=== PATIENT | male | born 1980 | race Caucasian/White ===

== ENCOUNTER → 2024-05-05 | Outpatient (CLI) | payer OTHER ==
[2024-05-05 15:15] VITALS: BP 99/64; PULSE 98; RESP 16; TEMP 99; BMI 83.2
--- NOTE | 2024-05-05 16:09 | P.HPBAR ---
Bariatric H&P - History & Physicial H&P Date: 05/05/24 History & Physicial: Visit/CC: new Patient initial contact: Initial weight: 270.795 kg Initial weight in pounds: 597.00 Height: 5 ft 11 in Initial BMI: 83.2 Last weight: Current weight: 270.795 kg Current weight in pounds: 597.00 Current BMI: 83.2 [place] body weight (based on NIH guidelines): 78.18 kg Excess body weight loss: 0.0% The patient is a 43 year-old M who presents for Bariatric Assessment. Looking for sleeve or bypass. Maybe bypass. He is on oxygen for 3 years. Has not seen a lung specialist. Heart doctor at [facility]. Could not travel downtown. Hospital IV diuretics at [facility]. Moved to [place]. PCP is Tray. Heart failure specialist. [facility]. Seminar. Wanted to lose 70 pounds. Had to be under 500 pounds. He is 600 pounds. Past Medical History Past Medical History: Asthma, Heart Failure, Diabetes Mellitus, Hypertension, Skin Disorder, Sleep Apnea/CPAP/BIPAP Additional Past Medical History / Comment(s): 3LNC O2 all the time, BIPAP at , Pre diabetic, Psoriasis on abdomen History of Any Multi-Drug Resistant Organisms: None Reported Additional Past Surgical History / Comment(s): I&D abscess on neck Past Anesthesia/Blood Transfusion Reactions: No Reported Reaction Past Psychological History: No Psychological Hx Reported Smoking Status: Former smoker Past Alcohol Use History: None Reported Additional Past Alcohol Use History / Comment(s): Stopped smoking cigarettes 2020 Additional Drug Use History / Comment(s): Pt states former ETOH and Marijuana use - Past Family History Mother Additional Family Medical History / Comment(s): End stage Renal disease Father Family Medical History: Cancer, Coronary Artery Disease (CAD) Additional Family Medical History / Comment(s): leukemia Surgical - Exam Vital Signs Temp Pulse Resp BP Pulse Ox 99.0 F 98 16 99/64 96 05/05/24 14:59 05/05/24 14:59 05/05/24 14:59 05/05/24 14:59 05/05/24 14:59 Bariatric Checklist Checklist: Plan: Checklist: EGD: 1. Hiatal hernia: 2. H. Pylori: HgbA1c: Vitamin D: Smoking: Primary care physician referral: [facility] Psychiatry clearance: Cardiology clearance: Sleep study: Diet journal: VTE risk score: VTE risk level: Rehab needs at discharge:
== END ==
LOC: BARWHC3 14:44
PROVIDERS: ATTEND Surgery Plastic and Reconstructive Surgery
DX: E66.01 Morbid (severe) obesity due to excess calories (principal); Z68.45 Body mass index [BMI] 70 or greater, adult
CPT/HCPCS: 99202

== ENCOUNTER → 2024-05-31 | Day surgery (SDC) | payer OTHER ==
[2024-05-28 10:31] VITALS: BMI 80.4
[~2024-05-31] MED LIST: LACTATED RINGERS 1,000 ML IV SCH; LIDOCAINE 1% (10MG/ML) FOR IV START INTRADERMA PRN; LIDOCAINE 2% (PF) 20 MG/ML 5 ML VIAL ONE; PROPOFOL 10 MG/ML 20 ML VIAL IV ONE; SUCCINYLCHOLINE CHLORIDE 200 MG/10 ML VIAL IV ONE
[2024-05-31] MEDS: LACTATED RINGERS 1,000 ML IV ONE (08:29)
[2024-05-31] MEDS: ONDANSETRON 4 MG/2 ML VIAL IVP STA (08:34)
--- NOTE | 2024-05-31 08:35 | P.GSHP ---
History of Present Illness H&P Date: 05/31/24 CHIEF COMPLAINT: Dysphagia HISTORY OF PRESENT ILLNESS: The patient is a 43-year-old male who presents reports gastroesophageal reflux disease and dysphagia. Upper endoscopy was offered for further evaluation and management. PAST MEDICAL HISTORY: Please see list. PAST SURGICAL HISTORY: Please see list. MEDICATIONS: Please see list. ALLERGIES: Please see list. SOCIAL HISTORY: No illicit drug use FAMILY HISTORY: No reports of Crohn disease or ulcerative colitis. REVIEW OF ORGAN SYSTEMS: CONSTITUTIONAL: No reports of fevers or chills. GI: Denies any blood in stools or constipation. PHYSICAL EXAM: VITAL SIGNS: Stable GENERAL: Well-developed and pleasant in no acute distress. HEENT: No scleral icterus. Extraocular movements grossly intact. Moist buccal mucosa. NECK: Supple without lymphadenopathy. CHEST: Unlabored respirations. Equal bilateral excursions. CARDIOVASCULAR: Regular rate and rhythm. Distal 2+ pulses. ABDOMEN: Soft, nondistended. MUSCULOSKELETAL: No clubbing, cyanosis, or edema. ASSESSMENT: 1. Gastroesophageal reflux disease and dysphagia PLAN: 1. Recommend proceeding with an upper endoscopy Past Medical History Past Medical History: Asthma, Heart Failure, Hypertension, Skin Disorder, Sleep Apnea/CPAP/BIPAP Additional Past Medical History / Comment(s): Having EDG for prep for bariatric surgery. continuous 3LNC O2, BIPAP at HS, Pre-diabetic, Psoriasis on abdomen History of Any Multi-Drug Resistant Organisms: None Reported Additional Past Surgical History / Comment(s): I&D abscess on neck Past Anesthesia/Blood Transfusion Reactions: No Reported Reaction Additional Past Anesthesia/Blood Transfusion Reaction / Comment(s): No hx of blood transfusion Smoking Status: Former smoker - Past Family History Mother Additional Family Medical History / Comment(s): End stage Renal disease Father Family Medical History: Cancer, Coronary Artery Disease (CAD) Additional Family Medical History / Comment(s): leukemia Medications and Allergies Home Medications Medication Instructions Recorded Confirmed Type Empagliflozin [Jardiance] 25 mg PO DAILY 05/05/24 05/28/24 History Metoprolol Tartrate [Lopressor] 100 mg PO DAILY 05/05/24 05/28/24 History Potassium Chloride [K-Tab ER] 20 meq PO DAILY 05/05/24 05/28/24 History Sacubitril/Valsartan [Entresto 24 1 tab PO BID 05/05/24 05/28/24 History mg-26 mg Tablet] Spironolactone [Aldactone] 50 mg PO BID 05/05/24 05/28/24 History traMADol HCl [Ultram] 50 mg PO BID PRN 05/05/24 05/28/24 History Tirzepatide [Zepbound] 7.5 mg SQ TH 05/28/24 05/28/24 History Torsemide [Demadex] 100 mg PO DAILY 05/28/24 05/28/24 History Allergies Allergy/AdvReac Type Severity Reaction Status Date / Time No Known Allergies Allergy Verified 05/28/24 10:19 Surgical - Exam Vital Signs Temp Pulse Resp BP Pulse Ox 96 F L 89 18 129/56 99 05/31/24 08:28 05/31/24 08:28 05/31/24 08:28 05/31/24 08:28 05/31/24 08:28
[2024-05-31 08:36] LABS: Glucose,Whole Blood 117 mg/dL (70-110)
[2024-05-31] MEDS: DEXAMETHASONE SOD PHOSPHATE 4 MG/ML 1 ML VIAL IVP STA (08:37)
[2024-05-31 09:28] VITALS: TEMP 97
--- NOTE | 2024-05-31 09:33 | P.PCN ---
Date of Procedure: 05/31/24 Description of Procedure: PREOPERATIVE DIAGNOSIS: Dysphagia Gastroesophageal reflux disease. Morbid obesity, BMI over 80 POSTOPERATIVE DIAGNOSIS: Gastroesophageal reflux disease. Morbid obesity. Gastritis. Gastroparesis OPERATION: Esophagogastroduodenoscopy with cold forceps biopsies along antrum and duodenum SURGEON: Jami Churchill MD ANESTHESIA: General INDICATIONS: The patient is a 43-year-old male who presents with dysphagia and reflux disease. Benefits and risks of the procedure were described. Informed consent was obtained. DESCRIPTION: The patient was brought into the endoscopy suite. Endotracheal intubation was performed due to patient pre-existing COPD and body habitus. An Olympus gastroscope was passed along the posterior oropharynx down to the distal esophagus where the squamocolumnar junction was encountered at 45 cm from the incisors. The stomach was entered and no bile reflux was found. Additional findings are listed below. Biopsies with cold forceps were obtained of the antrum. The first through third portion of the duodenum was examined. Retroflexion of the scope confirmed Hill grade 3 lower esophageal valve. The squamocolumnar junction demonstrated LA grade B erosive esophagitis. The stomach was desufflated. The patient tolerated the procedure well. FINDINGS: Squamocolumnar junction 45 cm from the incisors. Diaphragmatic hiatus at 45 cm. Hill grade 2 lower esophageal valve. LA grade C erosive esophagitis. Biopsies obtained Biopsies obtained of the duodenum. Chronic gastritis with biopsies obtained. Moderate retained food within the stomach consistent with gastroparesis RECOMMENDATIONS: Recommend avoiding Jardiance 1 week prior to surgery At least 3 days liquid diet advised prior to surgery Recommend sleeve gastrectomy Plan - Discharge Summary Discharge Rx Participant: No New Discharge Prescriptions: Continue Spironolactone [Aldactone] 50 mg PO BID Metoprolol Tartrate [Lopressor] 100 mg PO DAILY Tirzepatide [Zepbound] 7.5 mg SQ TH Potassium Chloride [K-Tab ER] 20 meq PO DAILY traMADol HCl [Ultram] 50 mg PO BID PRN PRN Reason: Pain Sacubitril/Valsartan [Entresto 24 mg-26 mg Tablet] 1 tab PO BID Empagliflozin [Jardiance] 25 mg PO DAILY Torsemide [Demadex] 100 mg PO DAILY Discharge Medication List Empagliflozin [Jardiance] 25 mg PO DAILY 05/05/24 [History] Metoprolol Tartrate [Lopressor] 100 mg PO DAILY 05/05/24 [History] Potassium Chloride [K-Tab ER] 20 meq PO DAILY 05/05/24 [History] Sacubitril/Valsartan [Entresto 24 mg-26 mg Tablet] 1 tab PO BID 05/05/24 [History] Spironolactone [Aldactone] 50 mg PO BID 05/05/24 [History] traMADol HCl [Ultram] 50 mg PO BID PRN 05/05/24 [History] Tirzepatide [Zepbound] 7.5 mg SQ TH 05/28/24 [History] Torsemide [Demadex] 100 mg PO DAILY 05/28/24 [History] [facility] up [facility]ment([facility] [place] [facility] - 06/16/24 3:00 pm Patient Instructions/Handouts: Gastroparesis (GEN), Gastritis (DC) Discharge Disposition: HOME SELF-CARE
--- NOTE | 2024-05-31 09:33 | P.PN ---
Progress Note - Text Progress Note Date: 05/31/24 Recommend EKG for atypical chest pain
[2024-05-31 10:26] VITALS: RESP 16
[2024-05-31 10:30] VITALS: BP 112/50; PULSE 93
[2024-05-31 11:43] LABS: ALT 18 U/L (4-49); AST 16 U/L (17-59); African American GFR (CKD) 42 (>60 ml/min/1.73 sqM); Albumin 4.1 g/dL (3.5-5.0); Alkaline Phosphatase 99 U/L (38-126); Anion Gap 9 mmol/L; Blood Urea Nitrogen 69 mg/dL (9-20); Calcium 9.8 mg/dL (8.4-10.2); Carbon Dioxide 35 mmol/L (22-30); Chloride 94 mmol/L (98-107); Glucose 149 mg/dL (74-99); Magnesium 2.7 mg/dL (1.6-2.3); Non-African American GFR(CKD) 36 (>60 ml/min/1.73 sqM); Phosphorus 3.2 mg/dL (2.5-4.5); Potassium 4.8 mmol/L (3.5-5.1); Sodium 138 mmol/L (137-145); Total Bilirubin 0.3 mg/dL (0.2-1.3); Total Protein 7.8 g/dL (6.3-8.2)
[2024-05-31 11:44] LABS: HCT 35.1 % (39.6-50.0); HGB 11.1 g/dL (13.0-17.0); MCH 30.7 pg (27.0-32.0); MCHC 31.6 g/dL (32.0-37.0); Mean Platelet Volume 10.3 fL (9.5-12.2); Platelet Count 278 10*3/uL (140-440); RBC 3.62 10*6/uL (4.40-5.60); RDW 13.4 % (11.5-14.5); WBC 15.18 10*3/uL (4.50-10.00)
[2024-05-31 11:55] LABS: INR 0.9 (<1.2); Partial Thromboplastin Time 24.8 sec (22.0-30.0); Prothrombin Time 10.4 sec (10.0-12.5)
[2024-05-31 16:39] LABS: Prealbumin 25.1 mg/dL (18.0-42.0)
[2024-05-31 17:01] LABS: % Iron Saturation 19.66 (15.00-50.00); Iron 69 UG/DL (65-175); LDL Cholesterol,Calculated 133.5 mg/dL (0.0-131.0); Total Iron Binding Capacity 351 UG/DL (228-460)
[2024-05-31 21:39] LABS: Urine Alcohol Negative (Negative); Urine Barbiturate Negative (Negative); Urine Cocaine Negative (Negative); Urine Methadone Negative (Negative); Urine Opiates Negative (Negative); Urine Phencyclidine Negative (Negative)
[2024-06-01 13:40] LABS: Zinc, Serum 64 ug/dL (60-130)
[2024-06-02 06:44] LABS: Vitamin A 82 ug/dL (38-106)
[2024-06-02 20:41] LABS: Selenium 143 mcg/L (63-160)
[2024-06-03 04:10] LABS: Anabasine Urine <2.0 ng/mL (<2.0)
[2024-06-04 13:39] LABS: Vit B1(Thiamine) 84 ug/L (38-122)
== END | disposition home or self-care (01) ==
LOC: ORWHC2ENDO 07:47
PROVIDERS: ATTEND Surgery Plastic and Reconstructive Surgery
DX: K21.00 Gastro-esophageal reflux disease with esophagitis, without bleeding (principal); K22.10 Ulcer of esophagus without bleeding; K29.50 Unspecified chronic gastritis without bleeding; K44.9 Diaphragmatic hernia without obstruction or gangrene; K31.84 Gastroparesis; K22.89 Other specified disease of esophagus; E66.01 Morbid (severe) obesity due to excess calories; J45.909 Unspecified asthma, uncomplicated; I11.0 Hypertensive heart disease with heart failure; I50.9 Heart failure, unspecified; R73.03 Prediabetes; L40.9 Psoriasis, unspecified; G47.33 Obstructive sleep apnea (adult) (pediatric); Z79.899 Other long term (current) drug therapy; Z79.84 Long term (current) use of oral hypoglycemic drugs; Z68.45 Body mass index [BMI] 70 or greater, adult; Z87.891 Personal history of nicotine dependence
CPT/HCPCS: 84255; 84134; 88305; 84425; 80061; 80053; 82607; 82728; 82525; 82746; 83540; 83550; 83735; 84100; 84443; 84590; 84630; 85027; 85610; 85730; 82306; 80306; 83970; 83036; 43239; G0480; J0330; J1100; J2405; J2704; J2003; 80323